=== PATIENT | female | born 1995 | race African-American/Black ===

== ENCOUNTER 2017-03-12 19:27 | Emergency (ER) | payer MEDICAID, OTHER ==
[~2017-03-12] VITALS: Ht 157.5 cm; Wt 88.9 kg
[2017-03-12 19:37] VITALS: BP 128/82
== END 2017-03-12 22:15 | disposition left against medical advice (07) ==
LOC: ER 19:27
DX: M54.5 Low back pain (principal); R05 Cough; Z53.21 Procedure and treatment not carried out due to patient leaving prior to being seen by health care provider